=== PATIENT | male | born 1995 | race Caucasian/White ===

== ENCOUNTER 2021-04-02 14:11 | Inpatient (IN) | payer SELFPAY ==
[~2021-04-02] VITALS: Ht 165.1 cm; Wt 70.3 kg
[2021-04-02] MEDS ORDERED: CEFTRIAXONE 1 G PREMIX 50 ML IV ONE (15:00)
[2021-04-02] MEDS ORDERED: VANCOMYCIN 1 G PREMIX 200 ML IV ONE (15:00)
[2021-04-02 15:35] LABS: BASOPHILS % 1.3 % (0.0-2.0); EOSINOPHILS % 0.5 % (0.0-5.0); HEMOGLOBIN. 10.1 g/dL (14.0-18.0); MEAN CORPUSCULAR HEMOGLOBIN 33.4 pg (28.0-32.0); MEAN CORPUSCULAR VOLUME 95.8 fL (80.0-94.0); MEAN PLATELET VOLUME 7.8 fl (7.4-10.4); MONOCYTES % 11.8 % (2.0-8.0); NEUTROPHILS % 76.4 % (40.0-76.0); PLATELET 481 x1000/uL (130-400); RED BLOOD CELL COUNT 3.03 mill/uL (4.7-6.1); RED CELL DISTRIBUTION WIDTH 14.3 % (11.6-14.6)
[2021-04-02 15:41] LABS: CHLORIDE 101 mEq/L (98-107)
[2021-04-02 15:49] LABS: CREATINE KINASE 45 IU/L (39-308)
[2021-04-02 16:10] LABS: INR 1.2
[2021-04-02] MEDS ORDERED: SODIUM CHLORIDE 0.9% 1,000 ML IV ONE (16:15)
[2021-04-02] MEDS ORDERED: SODIUM CHLORIDE 0.9% 1,000 ML IV NR (17:30)
[2021-04-02] MEDS ORDERED: DIPHENHYDRAMINE 50MG/ML VIAL IV PRN (20:30)
[2021-04-02] MEDS ORDERED: LORAZEPAM 2MG/ML CPJ IV PRN (20:30)
[2021-04-02] MEDS ORDERED: GUAIFENESIN 200MG/10ML SUGAR FREE UDC PO PRN (20:30)
[2021-04-02] MEDS ORDERED: HYDRALAZINE 20MG/ML VIAL IV PRN (20:30)
[2021-04-02] MEDS ORDERED: CLONIDINE 0.1MG TABLET PO PRN (20:30)
[2021-04-02] MEDS ORDERED: DOCUSATE SODIUM 100MG CAPSULE PO PRN (20:30)
[2021-04-02] MEDS ORDERED: IPRATROPIUM/ALBUTEROL 0.5-3(2.5)MG/3ML NEB HHN PRN (20:30)
[2021-04-02] MEDS ORDERED: PIPERACILLIN/TAZ 3.375G PREMIX 50 ML IV SCH (20:30)
[2021-04-02] MEDS ORDERED: ONDANSETRON HCL 4MG/2ML INJ IV PRN (20:30)
[2021-04-02] MEDS ORDERED: ACETAMINOPHEN 325MG TABLET PO PRN (20:30)
[2021-04-02] MEDS: ENOXAPARIN 40MG/0.4ML SYR SUBCUT SCH (21:51)
[2021-04-02] MEDS ORDERED: PIPERACILLIN/TAZOBACTAM 3.375G in DEXT 5% WATER 50ML IV SCH (22:00)
[2021-04-02] MEDS: SODIUM CHLORIDE 0.9% INJ 3ML FLUSH IVF SCH (22:15)
[2021-04-02] MEDS ORDERED: HYDRALAZINE 10 MG in SODIUM CHLORIDE 0.9% 49.5 ML IV PRN (23:45)
[2021-04-02] MEDS ORDERED: NALOXONE HCL 0.4MG/ML VIAL IV PRN (23:45)
[2021-04-03] VITALS (7 sets, daily range): BP systolic 92–116; BP diastolic 55–72
[2021-04-03] MEDS: HYDROCODONE/ACETAMINOPHEN 5/325MG TABLET PO PRN ×3 (02:45→15:05)
[2021-04-03] MEDS: SODIUM CHLORIDE 0.9% INJ 3ML FLUSH IVF SCH ×3 (06:16→21:41)
[2021-04-03] MEDS: PIPERACILLIN/TAZOBACTAM 3.375G in DEXT 5% WATER 50ML IV SCH ×3 (06:16→21:40)
[2021-04-03 06:54] LABS: HEMATOCRIT. 29.3 % (42.0-52.0); HEMOGLOBIN. 10.3 g/dL (14.0-18.0); MEAN CORPUSCULAR HEMOGLOBIN 33.3 pg (28.0-32.0); MEAN CORPUSCULAR VOLUME 94.6 fL (80.0-94.0); MEAN PLATELET VOLUME 8.2 fl (7.4-10.4); PLATELET 406 x1000/uL (130-400)
[2021-04-03 06:57] LABS: CHLORIDE 103 mEq/L (98-107)
[2021-04-03 11:22] LABS: PLATELET ESTIMATE SLIGHTLY INCREASED
[2021-04-03] MEDS: THIAMINE HCL 100MG TABLET PO SCH (12:14)
[2021-04-03] MEDS: FOLIC ACID 1MG TABLET PO SCH (12:14)
[2021-04-03] MEDS: MAGNESIUM/ALUMINUM HYDROXIDE/SIMETHICONE 30ML UDC PO PRN ×2 (12:15→15:00)
[2021-04-03 13:50] LABS: HEPATITIS B SURFACE ANTIGEN NEGATIVE
[2021-04-03] MEDS: ENOXAPARIN 40MG/0.4ML SYR SUBCUT SCH (21:40)
[2021-04-04] VITALS: BP 103/69
[2021-04-04 04:00] VITALS: BP 111/79
[2021-04-04] MEDS: PIPERACILLIN/TAZOBACTAM 3.375G in DEXT 5% WATER 50ML IV SCH ×3 (06:02→20:56)
[2021-04-04] MEDS: SODIUM CHLORIDE 0.9% INJ 3ML FLUSH IVF SCH ×3 (06:03→20:56)
[2021-04-04 08:00] VITALS: BP 106/64
[2021-04-04] MEDS: FOLIC ACID 1MG TABLET PO SCH (10:18)
[2021-04-04] MEDS: THIAMINE HCL 100MG TABLET PO SCH (10:18)
[2021-04-04 12:00] VITALS: BP 103/58
[2021-04-04 16:00] VITALS: BP 109/64
[2021-04-04 20:00] VITALS: BP 117/67
[2021-04-04] MEDS: ENOXAPARIN 40MG/0.4ML SYR SUBCUT SCH (20:56)
[2021-04-05] VITALS: BP 103/63
[2021-04-05 04:00] VITALS: BP 109/64
[2021-04-05] MEDS: PIPERACILLIN/TAZOBACTAM 3.375G in DEXT 5% WATER 50ML IV SCH (05:29)
[2021-04-05] MEDS: SODIUM CHLORIDE 0.9% INJ 3ML FLUSH IVF SCH (05:30)
[2021-04-05 06:36] LABS: HEMATOCRIT. 30.9 % (42.0-52.0); HEMOGLOBIN. 10.7 g/dL (14.0-18.0); MEAN CORPUSCULAR HEMOGLOBIN 32.6 pg (28.0-32.0); MEAN CORPUSCULAR VOLUME 94.4 fL (80.0-94.0); MEAN PLATELET VOLUME 7.9 fl (7.4-10.4); PLATELET 409 x1000/uL (130-400); RED BLOOD CELL COUNT 3.27 mill/uL (4.7-6.1); RED CELL DISTRIBUTION WIDTH 14.4 % (11.6-14.6)
[2021-04-05 07:50] LABS: CHLORIDE 100 mEq/L (98-107)
[2021-04-05 08:00] VITALS: BP 104/68
[2021-04-05] MEDS: THIAMINE HCL 100MG TABLET PO SCH (09:08)
[2021-04-05] MEDS: FOLIC ACID 1MG TABLET PO SCH (09:08)
[2021-04-05 12:00] VITALS: BP 93/51
[2021-04-05 12:33] VITALS: BP 93/51
[2021-04-06 17:40] LABS: PLATELET ESTIMATE INCREASED
== END 2021-04-05 14:42 | disposition home or self-care (01) | DRG 383 ==
LOC: ER 14:11 → MICUSO 17:29 → EDBEDREQTM 17:42 → EDBEDREQ 17:42 → ENRESERV 19:32 → CANRESERV 19:32 → 6EST 23:35
PROVIDERS: ADMIT Internal Medicine; ATTEND Internal Medicine
DX: L03.116 Cellulitis of left lower limb (principal); E46 Unspecified protein-calorie malnutrition; E87.1 Hypo-osmolality and hyponatremia; D16.9 Benign neoplasm of bone and articular cartilage, unspecified; E86.0 Dehydration; F10.10 Alcohol abuse, uncomplicated; Y90.9 Presence of alcohol in blood, level not specified; R74.01 Elevation of levels of liver transaminase levels; Z68.25 Body mass index [BMI] 25.0-25.9, adult; Z71.41 Alcohol abuse counseling and surveillance of alcoholic; D64.9 Anemia, unspecified
CPT/HCPCS: 36415; 73590; 80048; 80053; 82550; 83605; 84145; 85025; 86140; 86703; 86705; 86709; 86803; 87340; 93971; 99285; J0696; J1650; J2543; J3370; J7040; J7060